=== PATIENT | female | born 1965 | race Caucasian/White ===

== ENCOUNTER → 2018-09-02 | Outpatient (CLI) | payer MEDICARE ==
--- NOTE | 2018-09-02 12:27 | Diagnostic Imaging Report ---
INDICATION: Left lower leg pain. TECHNIQUE: AP and lateral views of the left tibia and fibula show no fracture, dislocation, or other acute abnormalities. IMPRESSION: Negative left tibia and fibula. Dictated by: Dictated on workstation # [id number]
== END ==
LOC: RAD 11:28
PROVIDERS: ATTEND Family Medicine
DX: S89.92XA Unspecified injury of left lower leg, initial encounter (principal)
CPT/HCPCS: 73590

== ENCOUNTER 2018-12-26 14:41 | Emergency (ER) | payer MEDICARE ==
[~2018-12-26] VITALS: Ht 160 cm; Wt 129.3 kg
--- OUTSIDE RECORDS SUMMARY | 2018-12-26 14:46 | XMS REPORT ---
Author Author PAULA VOGEL Organization [facility] Address [address] [place] [address] Care Team Providers Care Drug Abuse Program Coordinator Name Role Phone PAULA VOGEL Unavailable PROBLEMS Type Condition ICD9-CM Code UCY11-ID Code Onset Dates Condition Status SNOMED Code Problem Multiple sclerosis G35 Active 87766597 Problem Restless leg syndrome G25.81 Active 18986434 Problem Essential hypertension I10 Active 23112030 Problem Cervical neck pain with evidence of disc disease M50.90 Active 423266338 ALLERGIES Substance Reaction Event Type Date Status Tamsulosin HCl Unknown Drug Allergy November, Active SulfADIAZINE Unknown Drug Allergy November, Active Oxycodone-Acetaminophen Unknown Drug Allergy November, Active ALL TAPE ADHESIVE Unknown Non Drug Allergy November, Active ENCOUNTERS Encounter Location Date Diagnosis [facility] [address] [facility] [id number] [place] [address] Feb, Flank pain R10.9 ; Acute cystitis without hematuria N30.00 and BMI 50.0-59.9, adult Z68.43 [facility] [address] [facility] [id number] [place] [address] Dec, Dental examination Z01.20 [facility] [address] [facility] [id number] [place] [address] November, Dental examination Z01.20 [facility] [address] [id number] [address] November, Dental caries on smooth surface penetrating into pulp K02.63 [facility] [address] [id number] [place] [address] November, [facility] [address] [address] November, Tear of medial meniscus of left knee, current, unspecified tear type, initial encounter S83.242A and Chondromalacia, left knee M94.262 [facility] LARISSA [id number] [place] [address] Oct, [facility] [address] [id number] [place] [address] Oct, Dental examination Z01.20 [facility] LARISSA [id number] [place] [address] Oct, Multiple sclerosis G35 and Cervical neck pain with evidence of disc disease M50.90 [facility] [address] [id number] [place] [address] Oct, [facility] LARISSA [id number] [place] [address] Oct, [facility] LARISSA [id number] [place] [address] Oct, History of urinary retention Z87.898 ; BMI 50.0-59.9, adult Z68.43 ; CVA tenderness M54.9 and Left anterior knee pain M25.562 [facility] LARISSA [id number] [place] [address] Sep, [facility] LARISSA [id number] [place] [address] Sep, [facility] LARISSA [id number] [address] Sep, Essential hypertension I10 ; Urinary retention R33.9 ; BMI 50.0-59.9, adult Z68.43 ; Cervical neck pain with evidence of disc disease M50.90 ; Restless leg syndrome G25.81 ; Multiple sclerosis G35 and Long-term current use of high risk medication other than anticoagulant Z79.899 IMMUNIZATIONS No Known Immunizations SOCIAL HISTORY Never Assessed REASON FOR VISIT TE PLAN OF CARE Activity Details Follow Up prn Reason: VITAL SIGNS Height 5'3" in 2017-12-09 Heart Rate 76 bpm 2017-12-09 Blood pressure systolic 120 mmHg 2017-12-09 Blood pressure diastolic 80 mmHg 2017-12-09 MEDICATIONS Medication Instructions Dosage Frequency Start Date End Date Duration Status Baclofen 10 MG Orally Three times a day 1 tablet with food or milk 8h Active Fenofibrate Micronized 134 MG Orally Once a day 1 capsule with a meal 24h Active Pramipexole Dihydrochloride 0.5 MG Orally Once a day 2 tablets 24h 90 days Active Celecoxib 400 MG Orally Once a day 1 capsule with food 24h 90 days Active Tecfidera 240 MG Orally Twice a day 1 capsule 12h 90 days Active Clindamycin HCl 150 MG Orally every 8 hrs 1 capsules 8h 10 days Not-Taking Amitriptyline HCl 25 MG Orally Once a day 1 tablet 24h Sep, 30 day(s) Active Zoloft 100 MG Orally Once a day 1 1/2 tablets 24h Active Ondansetron 4 MG Active Clarinex-D 12 Hour 2.5-120 MG Orally every 12 hrs 1 tablet 12h Active Amoxicillin 500 MG Orally every 12 hrs 1 capsule 12h 10 day(s) Not-Taking Losartan Potassium-HCTZ 50-12.5 MG Orally Once a day 1 tablet 24h 90 days Active Methenamine Hippurate 1 GM Orally Twice a day 1 tablet 12h 90 days Active Gabapentin 300 MG Orally 3 times a day 1 capsule before bedtime 8h Sep, 30 day(s) Active Flomax 0.4 MG Orally Once a day 1 capsule 24h 90 days Active Cyclobenzaprine HCl 10 MG Orally Three times a day 1 tablet as needed 8h Sep, Active RESULTS No Results PROCEDURES Procedure Date Ordered Result Body Site EXTRAC ERUPTED TOOTH/EXPOSED ROOT December 09, 2017 INSTRUCTIONS MEDICATIONS ADMINISTERED No Known Medications MEDICAL (GENERAL) HISTORY Type Description Date Medical History MS Medical History Spinal stenosis Medical History hypertension Medical History anxiety Medical History urinary retention Medical History memory issues Surgical History tonsillectomy Surgical History tubal ligation 1986 Surgical History choleycystectomy 1986 Surgical History complete hysterectomy 2005 Surgical History neck fusion 2015 Hospitalization History limited ROM/pain 08/2017 Hospitalization History ER visits
--- OUTSIDE RECORDS SUMMARY | 2018-12-26 14:46 | XMS REPORT ---
Author Author jenifferLOBITO Turpin Organization [facility] Address [address] [place] [address] Care Team Providers Care Tube Draw Helper Name Role Phone LOBITO Cintron Unavailable PROBLEMS Type Condition ICD9-CM Code PTX63-KE Code Onset Dates Condition Status SNOMED Code Problem Multiple sclerosis G35 Active 44302637 Problem Restless leg syndrome G25.81 Active 46915511 Problem Essential hypertension I10 Active 28855914 Problem Cervical neck pain with evidence of disc disease M50.90 Active 849561654 ALLERGIES Substance Reaction Event Type Date Status Tamsulosin HCl Unknown Drug Allergy Dec, Active SulfADIAZINE Unknown Drug Allergy Dec, Active Oxycodone-Acetaminophen Unknown Drug Allergy Dec, Active ALL TAPE ADHESIVE Unknown Non Drug Allergy Dec, Active ENCOUNTERS Encounter Location Date Diagnosis [facility] [address] [id number], [place] [address] Feb, [facility] [address]00565100[place], [place] [address] Feb, Flank pain R10.9 ; Acute cystitis without hematuria N30.00 and BMI 50.0-59.9, adult Z68.43 [facility] [address] [facility] [id number] [address] Dec, Dental examination Z01.20 [facility] [address] [facility] [id number] [address] November, Dental examination Z01.20 [facility] [address] [id number], [place] [address] November, Dental caries on smooth surface penetrating into pulp K02.63 [facility] [address] [id number] [place] [address] November, [facility] [address] [facility] [id number] [place] [address] November, Tear of medial meniscus of left knee, current, unspecified tear type, initial encounter S83.242A and Chondromalacia, left knee M94.262 [facility] LARISSA [address] [id number] [place] [address] Oct, [facility] [address] [id number], [place] [address] Oct, Dental examination Z01.20 [facility] LARISSA [address] [id number] [place] [address] Oct, Multiple sclerosis G35 and Cervical neck pain with evidence of disc disease M50.90 [facility] [address] [facility]NOTE 3[facility] [id number] [place] [address] Oct, [facility] LARISSA [address] [id number] [place] [address] Oct, [facility] [place] [address] [id number] [place] [address] Oct, History of urinary retention Z87.898 ; BMI 50.0-59.9, adult Z68.43 ; CVA tenderness M54.9 and Left anterior knee pain M25.562 [facility] LARISSA [address] [id number] [place] [address] Sep, [facility] LARISSA [address] [id number] [place] [address] Sep, [facility] LARISSA [address] [id number] [place] [address] Sep, Essential hypertension I10 ; Urinary retention R33.9 ; BMI 50.0-59.9, adult Z68.43 ; Cervical neck pain with evidence of disc disease M50.90 ; Restless leg syndrome G25.81 ; Multiple sclerosis G35 and Long-term current use of high risk medication other than anticoagulant Z79.899 IMMUNIZATIONS No Known Immunizations SOCIAL HISTORY Never Assessed REASON FOR VISIT nayeli PLAN OF CARE Activity Details Follow Up prn Reason:dharmesh/hygiene VITAL SIGNS Height 5'3" in 2017-12-22 Blood pressure systolic 145 mmHg 2017-12-22 Blood pressure diastolic 75 mmHg 2017-12-22 MEDICATIONS Medication Instructions Dosage Frequency Start Date End Date Duration Status Methenamine Hippurate 1 GM Orally Twice a day 1 tablet 12h 90 days Active Pramipexole Dihydrochloride 0.5 MG Orally Once a day 2 tablets 24h 90 days Active Baclofen 10 MG Orally Three times a day 1 tablet with food or milk 8h Active Amoxicillin 500 MG Orally every 12 hrs 1 capsule 12h 10 day(s) Not-Taking Tecfidera 240 MG Orally Twice a day 1 capsule 12h 90 days Active Zoloft 100 MG Orally Once a day 1 1/2 tablets 24h Active Cyclobenzaprine HCl 10 MG Orally Three times a day 1 tablet as needed 8h Sep, Active Losartan Potassium-HCTZ 50-12.5 MG Orally Once a day 1 tablet 24h 90 days Active Clarinex-D 12 Hour 2.5-120 MG Orally every 12 hrs 1 tablet 12h Active Fenofibrate Micronized 134 MG Orally Once a day 1 capsule with a meal 24h Active Ondansetron 4 MG Active Flomax 0.4 MG Orally Once a day 1 capsule 24h 90 days Active Celecoxib 400 MG Orally Once a day 1 capsule with food 24h 90 days Active Gabapentin 300 MG Orally 3 times a day 1 capsule before bedtime 8h Sep, 30 day(s) Active Clindamycin HCl 150 MG Orally every 8 hrs 1 capsules 8h 10 days Not-Taking Amitriptyline HCl 25 MG Orally Once a day 1 tablet 24h Sep, 30 day(s) Active RESULTS No Results PROCEDURES Procedure Date Ordered Result Body Site LTD ORAL EVALUATION - PROBLEM FOCUS December 22, 2017 INTRAORL-PERIAPICAL 1 FILM 12243 December 22, 2017 BITEWING - SINGLE FILM December 22, 2017 INSTRUCTIONS MEDICATIONS ADMINISTERED No Known Medications MEDICAL (GENERAL) HISTORY Type Description Date Medical History MS Medical History Spinal stenosis Medical History hypertension Medical History anxiety Medical History urinary retention Medical History memory issues Surgical History tonsillectomy Surgical History tubal ligation 1986 Surgical History choleycystectomy 1986 Surgical History complete hysterectomy 2005 Surgical History neck fusion 2016 Hospitalization History limited ROM/pain 08/2017 Hospitalization History ER visits
--- OUTSIDE RECORDS SUMMARY | 2018-12-26 14:46 | XMS REPORT ---
Author Author JASIEL MUKHERJEE Organization [facility] Address [address] [place] [address] Care Team Providers Care Crystal Lapper Name Role Phone JASIEL MUKHERJEE Unavailable PROBLEMS Type Condition ICD9-CM Code TBY31-OP Code Onset Dates Condition Status SNOMED Code Problem Multiple sclerosis G35 Active 90511547 Problem Restless leg syndrome G25.81 Active 35679934 Problem Essential hypertension I10 Active 00021941 Problem Cervical neck pain with evidence of disc disease M50.90 Active 729096267 ALLERGIES No Information ENCOUNTERS Encounter Location Date Diagnosis [facility] [address] [id number] [address] Dec, Dental examination Z01.20 [facility] [address] [place] [id number] November, Dental examination Z01.20 [facility] [id number] [address] November, Dental caries on smooth surface penetrating into pulp K02.63 [facility] LARISSA [address] [id number] [place] [address] November, [facility] [address] [id number], [place] [address] November, Tear of medial meniscus of left knee, current, unspecified tear type, initial encounter S83.242A and Chondromalacia, left knee M94.262 [facility] [place] [address] [id number] [place] [address] Oct, [facility] [address] [id number] [place] [address] Oct, Dental examination Z01.20 [facility] [place] [address] [id number] [place] [address] Oct, Multiple sclerosis G35 and Cervical neck pain with evidence of disc disease M50.90 [facility] [address] [facility] [id number] [place] [address] Oct, [facility] [place] [address] [id number] [place] [address] Oct, [facility] [place] [address] [id number] [place] [address] Oct, History of urinary retention Z87.898 ; BMI 50.0-59.9, adult Z68.43 ; CVA tenderness M54.9 and Left anterior knee pain M25.562 [facility] LARISSA [address] [id number] [place] [address] Sep, [facility] [place] [address] [id number] [place] [address] Sep, [facility] [place] [address] [id number] [place] [address] Sep, Essential hypertension I10 ; Urinary retention R33.9 ; BMI 50.0-59.9, adult Z68.43 ; Cervical neck pain with evidence of disc disease M50.90 ; Restless leg syndrome G25.81 ; Multiple sclerosis G35 and Long-term current use of high risk medication other than anticoagulant Z79.899 IMMUNIZATIONS No Known Immunizations SOCIAL HISTORY Never Assessed REASON FOR VISIT Left knee pain-xray done at [facility]- left knee is worse but both rolanda Archibald RN PLAN OF CARE Activity Details Follow Up prn Reason: VITAL SIGNS Height 5'3" in 2017-11-18 Blood pressure systolic 132 mmHg 2017-11-18 Blood pressure diastolic 72 mmHg 2017-11-18 MEDICATIONS Unknown Medications RESULTS Name Result Date Reference Range MRI : Knee, Left w/o contrast 2017-11-19 PROCEDURES Procedure Date Ordered Result Body Site DRAIN/INJECT, JOINT/BURSA November 18, 2017 DEPO MEDROL 80 MG/ML November 18, 2017 INSTRUCTIONS MEDICATIONS ADMINISTERED No Known Medications MEDICAL (GENERAL) HISTORY Type Description Date Medical History MS Medical History Spinal stenosis Medical History hypertension Medical History anxiety Medical History urinary retention Medical History memory issues Surgical History tonsillectomy Surgical History tubal ligation 1986 Surgical History choleycystectomy 1987 Surgical History complete hysterectomy 2005 Surgical History neck fusion 2016 Hospitalization History limited ROM/pain 08/2017 Hospitalization History ER visits
--- OUTSIDE RECORDS SUMMARY | 2018-12-26 14:46 | XMS REPORT ---
Author Author AGUSTIN BARDALES [facility] Address Unknown Care Team Providers Care Knowledge Analyst Name Role Phone AGUSTIN BARDALES Unavailable PROBLEMS Type Condition ICD9-CM Code TIP16-OP Code Onset Dates Condition Status SNOMED Code Problem Multiple sclerosis G35 Active 90139379 Problem Restless leg syndrome G25.81 Active 45939292 Problem Essential hypertension I10 Active 57760019 Problem Cervical neck pain with evidence of disc disease M50.90 Active 809191546 ALLERGIES Substance Reaction Event Type Date Status Tamsulosin HCl Unknown Drug Allergy November, Active SulfADIAZINE Unknown Drug Allergy November, Active Oxycodone-Acetaminophen Unknown Drug Allergy November, Active ALL TAPE ADHESIVE Unknown Non Drug Allergy November, Active ENCOUNTERS Encounter Location Date Diagnosis [facility] [address] [id number] [address] Feb, [facility] [id number] [place] [address] Feb, Flank pain R10.9 ; Acute cystitis without hematuria N30.00 and BMI 50.0-59.9, adult Z68.43 [facility] [address]00565100[place] [address] Dec, Dental examination Z01.20 [facility] [address] [facility] [id number] [place] [address] November, Dental examination Z01.20 [facility] [id number] [place] [address] November, Dental caries on smooth surface penetrating into pulp K02.63 [facility] [address] [id number] [place] [address] November, [facility] [address] [place] [address] November, Tear of medial meniscus of left knee, current, unspecified tear type, initial encounter S83.242A and Chondromalacia, left knee M94.262 [facility] [address] [id number] [place] [address] Oct, [facility] [address] [id number] [place] [address] Oct, Dental examination Z01.20 [facility] [address] [id number] [place] [address] Oct, Multiple sclerosis G35 and Cervical neck pain with evidence of disc disease M50.90 [facility] [address] [facility] [id number] [place] [address] Oct, [facility] [address] [id number] [place] [address] Oct, [facility] [address] [id number] [place] [address] Oct, History of urinary retention Z87.898 ; BMI 50.0-59.9, adult Z68.43 ; CVA tenderness M54.9 and Left anterior knee pain M25.562 [facility] [address] [id number] [place] [address] Sep, [facility] [address] [id number] [place] [address] Sep, [facility] [address] [id number] [place] [address] Sep, Essential hypertension I10 ; Urinary retention R33.9 ; BMI 50.0-59.9, adult Z68.43 ; Cervical neck pain with evidence of disc disease M50.90 ; Restless leg syndrome G25.81 ; Multiple sclerosis G35 and Long-term current use of high risk medication other than anticoagulant Z79.899 IMMUNIZATIONS No Known Immunizations SOCIAL HISTORY Never Assessed REASON FOR VISIT pain after TE PLAN OF CARE Activity Details Follow Up prn Reason:dharmesh/hygiene VITAL SIGNS Height 5'3" in 2017-12-16 Blood pressure systolic 125 mmHg 2017-12-16 Blood pressure diastolic 67 mmHg 2017-12-16 MEDICATIONS Medication Instructions Dosage Frequency Start Date [...] capsule with food 24h 90 days Active Clarinex-D 12 Hour 2.5-120 MG Orally every 12 hrs 1 tablet 12h Active Clindamycin HCl 150 MG Orally every 8 hrs 1 capsules 8h 10 days Not-Taking Amitriptyline HCl 25 MG Orally Once a day 1 tablet 24h Sep, 30 day(s) Active Ondansetron 4 MG Active Tecfidera 240 MG Orally Twice a day 1 capsule 12h 90 days Active Zoloft 100 MG Orally Once a day 1 1/2 tablets 24h Active Gabapentin 300 MG Orally 3 times a day 1 capsule before bedtime 8h Sep, 30 day(s) Active Losartan Potassium-HCTZ 50-12.5 MG Orally Once a day 1 tablet 24h 90 days Active Methenamine Hippurate 1 GM Orally Twice a day 1 tablet 12h 90 days Active Amoxicillin 500 MG Orally every 12 hrs 1 capsule 12h 10 day(s) Not-Taking Flomax 0.4 MG Orally Once a day 1 capsule 24h 90 days Active Cyclobenzaprine HCl 10 MG Orally Three times a day 1 tablet as needed 8h Sep, Active RESULTS No Results PROCEDURES Procedure Date Ordered Result Body Site LTD ORAL EVALUATION - PROBLEM FOCUS December 16, 2017 INTRAORL-PERIAPICAL 1 FILM 15569 December 16, 2017 INSTRUCTIONS MEDICATIONS ADMINISTERED No Known Medications [...]
--- OUTSIDE RECORDS SUMMARY | 2018-12-26 14:46 | XMS REPORT ---
Author Author FLORENTIN MCKEON [facility] LARISSA Address [address] [place] [address] Care Team Providers Care Hydration Plant Operator Name Role Phone FLORENTIN MCKEON Unavailable PROBLEMS Type Condition ICD9-CM Code UVR34-PL Code Onset Dates Condition Status SNOMED Code Problem Multiple sclerosis G35 Active 41627866 Problem Restless leg syndrome G25.81 Active 41537188 Problem Essential hypertension I10 Active 31216528 Problem Cervical neck pain with evidence of disc disease M50.90 Active 412543458 ALLERGIES No Information ENCOUNTERS Encounter Location Date Diagnosis [facility] [address] [id number] [address] Dec, Dental examination Z01.20 [facility] [address] [place] [phone] November, Dental examination Z01.20 [facility] [id number] [place] [address] November, Dental caries on smooth surface penetrating into pulp K02.63 [facility] [place] [address] [id number] [place] [address] November, [facility] [address] [id number], [place] [address] November, Tear of medial meniscus of left knee, current, unspecified tear type, initial encounter S83.242A and Chondromalacia, left knee M94.262 [facility] [place] [address] [id number] [place] [address] Oct, [facility] [address] [id number], [place] [address] Oct, Dental examination Z01.20 [facility] [place] [address] [id number] [place] [address] Oct, Multiple sclerosis G35 and Cervical neck pain with evidence of disc disease M50.90 [facility] [address] [facility] [id number] [place] [address] Oct, [facility] LAR[facility]SA [address] [id number] [place] [address] Oct, [facility] [place] [address] [id number] [place] [address] Oct, History of urinary retention Z87.898 ; BMI 50.0-59.9, adult Z68.43 ; CVA tenderness M54.9 and Left anterior knee pain M25.562 [facility] [place] Far[address] [id number] [place] [address] Sep, [facility] [place] [address] [id number] [place] [address] Sep, [facility] [address] [id number] [place] [address] Sep, Essential hypertension I10 ; Urinary retention R33.9 ; BMI 50.0-59.9, adult Z68.43 ; Cervical neck pain with evidence of disc disease M50.90 ; Restless leg syndrome G25.81 ; Multiple sclerosis G35 and Long-term current use of high risk medication other than anticoagulant Z79.899 IMMUNIZATIONS No Known Immunizations SOCIAL HISTORY Never Assessed REASON FOR VISIT Requests return call PLAN OF CARE VITAL SIGNS MEDICATIONS Unknown Medications RESULTS No Results PROCEDURES No Known procedures INSTRUCTIONS MEDICATIONS ADMINISTERED No Known Medications MEDICAL [...]
--- OUTSIDE RECORDS SUMMARY | 2018-12-26 14:46 | XMS REPORT ---
Author Author YOLA SIMS Organization [facility] Address [address] [place] [address] Care Team Providers Care Playroom Attendant Name Role Phone YOLA SIMS Unavailable PROBLEMS Type Condition ICD9-CM Code XTH81-IS Code Onset Dates Condition Status SNOMED Code Problem Multiple sclerosis G35 Active 68173597 Problem Restless leg syndrome G25.81 Active 44768608 Problem Essential hypertension I10 Active 14218213 Problem Cervical neck pain with evidence of disc disease M50.90 Active 617461617 ALLERGIES Substance Reaction Event Type Date Status Tamsulosin HCl Unknown Drug Allergy Feb, Active SulfADIAZINE Unknown Drug Allergy Feb, Active Oxycodone-Acetaminophen Unknown Drug Allergy Feb, Active ALL TAPE ADHESIVE Unknown Non Drug Allergy Feb, Active ENCOUNTERS Encounter Location Date Diagnosis [facility] [id number] [place] [address] Feb, [facility] [id number] [place] [address] Feb, Flank pain R10.9 ; Acute cystitis without hematuria N30.00 and BMI 50.0-59.9, adult Z68.43 [facility] [address] [phone] Dec, Dental examination Z01.20 [facility] [address] [id number] November, Dental examination Z01.20 [facility] [address] [id number], [place] [address] November, Dental caries on smooth surface penetrating into pulp K02.63 [facility] [address] [id number] [place] [address] November, [facility] [address] [facility] [id number] [place] [address] November, Tear of medial meniscus of left knee, current, unspecified tear type, initial encounter S83.242A and Chondromalacia, left knee M94.262 [facility] [place] [address] [id number] [place] [address] Oct, [facility] [address] [id number] [address] Oct, Dental examination Z01.20 [facility] [address] [id number] [place] [address] Oct, Multiple sclerosis G35 and Cervical neck pain with evidence of disc disease M50.90 [facility] [address] [facility] [id number] [place] [address] Oct, [facility] [address] [id number] [place] [address] Oct, [facility] [place] [address] [id number] [place] [address] Oct, History of urinary retention Z87.898 ; BMI 50.0-59.9, adult Z68.43 ; CVA tenderness M54.9 and Left anterior knee pain M25.562 [facility] [address] [id number] [place] [address] Sep, [facility] [address] [id number] [place] [address] Sep, [facility] [address] [id number] [place] [address] Sep, Essential hypertension I10 ; Urinary retention R33.9 ; BMI 50.0-59.9, adult Z68.43 ; Cervical neck pain with evidence of disc disease M50.90 ; Restless leg syndrome G25.81 ; Multiple sclerosis G35 and Long-term current use of high risk medication other than anticoagulant Z79.899 IMMUNIZATIONS No Known Immunizations SOCIAL HISTORY Never Assessed REASON FOR VISIT flank pain bilaterally et some urinary incontinence. been like this for a week. was in the ER last week...reports it was all stress related. [email or web address] PLAN OF CARE Activity Details Follow Up prn Reason: VITAL SIGNS Height 5'3" in 2018-03-04 Weight 284.4 lbs 2018-03-04 Temperature 98.3 degrees Fahrenheit 2018-03-04 Heart Rate 80 bpm 2018-03-04 Respiratory Rate 20 2018-03-04 BMI 50.37 kg/m2 2018-03-04 Blood pressure systolic 130 mmHg 2018-03-04 Blood pressure diastolic 78 mmHg 2018-03-04 MEDICATIONS Medication Instructions Dosage Frequency Start Date End Date Duration Status Zoloft 100 MG Orally Once a day 1 1/2 tablets 24h Active Celecoxib 400 MG Orally Once a day 1 capsule with food 24h 90 days Active Amitriptyline HCl 25 MG Orally Once a day 1 tablet 24h Sep, 30 day(s) Active Cyclobenzaprine HCl 10 MG Orally Three times a day 1 tablet as needed 8h Sep, Active Flomax 0.4 MG Orally Once a day 1 capsule 24h 90 days Active Losartan Potassium-HCTZ 50-12.5 MG Orally Once a day 1 tablet 24h 90 days Active Tecfidera 240 MG Orally Twice a day 1 capsule 12h 90 days Active Baclofen 10 MG Orally Three times a day 1 tablet with food or milk 8h Active Macrobid 100 MG Orally every 12 hrs 1 capsule with food 12h Feb, 3 days Active Methenamine Hippurate 1 GM Orally Twice a day 1 tablet 12h 90 days Active Clarinex-D 12 Hour 2.5-120 MG Orally every 12 hrs 1 tablet 12h Active Gabapentin 300 MG Orally 3 times a day 1 capsule before bedtime 8h Sep, 30 day(s) Active Ondansetron 4 MG Active Pramipexole Dihydrochloride 0.5 MG Orally Once a day 2 tablets 24h 90 days Active Fenofibrate Micronized 134 MG Orally Once a day 1 capsule with a meal 24h Active RESULTS No Results PROCEDURES Procedure Date Ordered Result Body Site URINALYSIS, AUTO, W/O SCOPE Mar 04, 2018 URINE CULTURE/COLONY COUNT Mar 04, 2018 INSTRUCTIONS MEDICATIONS ADMINISTERED No Known Medications MEDICAL [...]
--- OUTSIDE RECORDS SUMMARY | 2018-12-26 14:46 | XMS REPORT ---
Author Author YOLA SIMS [facility] Address [address] [place] [address] Care Team Providers Care Ballet Teacher Name Role Phone YOLA SIMS Unavailable PROBLEMS Type Condition ICD9-CM Code YID77-DY Code Onset Dates Condition Status SNOMED Code Problem Multiple sclerosis G35 Active 86289381 Problem Restless leg syndrome G25.81 Active 90830171 Problem Essential hypertension I10 Active 69479499 Problem Cervical neck pain with evidence of disc disease M50.90 Active 909497003 ALLERGIES No Information ENCOUNTERS Encounter Location Date Diagnosis [facility] [address] [place] [address] Feb, [facility] [address], [place] [address] Feb, Flank pain R10.9 ; Acute cystitis without hematuria N30.00 and BMI 50.0-59.9, adult Z68.43 [facility] [id number] [phone] Dec, Dental examination Z01.20 [facility] [address] [place] [id number] November, Dental examination Z01.20 [facility] [address] [id number], [place] [address] November, Dental caries on smooth surface penetrating into pulp K02.63 [facility] [address] [id number] [place] [address] November, [facility] [address] [id number], [place] [address] November, Tear of medial meniscus of left knee, current, unspecified tear type, initial encounter S83.242A and Chondromalacia, left knee M94.262 [facility] [place] [address] [id number] [place] [address] Oct, [facility] [address] [id number] [place] [address] Oct, Dental examination Z01.20 [facility] [address] [address] [id number] [place] [address] Oct, Multiple sclerosis G35 and Cervical neck pain with evidence of disc disease M50.90 [facility] [address] [id number] [place] [address] Oct, [facility] [place] [address] [id number] [place] [address] Oct, [facility] [place] [address] [id number] [place] [address] Oct, History of urinary retention Z87.898 ; BMI 50.0-59.9, adult Z68.43 ; CVA tenderness M54.9 and Left anterior knee pain M25.562 [facility] [address] [id number] [place] [address] Sep, [facility] [address] [id number] [place] [address] Sep, [facility] [address] [id number] [place] [address] Sep, Essential hypertension I10 ; Urinary retention R33.9 ; BMI 50.0-59.9, adult Z68.43 ; Cervical neck pain with evidence of disc disease M50.90 ; Restless leg syndrome G25.81 ; Multiple sclerosis G35 and Long-term current use of high risk medication other than anticoagulant Z79.899 IMMUNIZATIONS No Known Immunizations SOCIAL HISTORY Never Assessed REASON FOR VISIT Returned call PLAN OF CARE VITAL SIGNS MEDICATIONS [...]
--- OUTSIDE RECORDS SUMMARY | 2018-12-26 14:47 | XMS REPORT ---
Author Author FLORENTIN MCKEON [facility] Address [address] [place] [address] Care Team Providers Care Litigation Docket Manager Name Role Phone FLORENTIN MCKEON Unavailable PROBLEMS Type Condition ICD9-CM Code RTQ64-YV Code Onset Dates Condition Status SNOMED Code Problem Multiple sclerosis G35 Active 24844345 Problem Restless leg syndrome G25.81 Active 65019800 Problem Essential hypertension I10 Active 29911456 Problem Cervical neck pain with evidence of disc disease M50.90 Active 495662951 ALLERGIES No Information ENCOUNTERS Encounter Location Date Diagnosis [facility] [id number] [id number] Dec, Dental examination Z01.20 [facility] [address] [place] [id number] November, Dental examination Z01.20 [facility] [id number] [place] [address] November, Dental caries on smooth surface penetrating into pulp K02.63 [facility] [address] [id number] [place] [address] November, [facility] [address] [id number] [address] November, Tear of medial meniscus of left knee, current, unspecified tear type, initial encounter S83.242A and Chondromalacia, left knee M94.262 [facility] [address] [id number] [place] [address] Oct, [facility] [address] [id number], [place] [address] Oct, Dental examination Z01.20 [facility] [address] [id number] [place] [address] Oct, Multiple sclerosis G35 and Cervical neck pain with evidence of disc disease M50.90 [facility] [address] [facility] [id number] [place] [address] Oct, [facility] [address] [id number] [place] [address] Oct, [facility] MACED[place] [address] [id number] [place] [address] Oct, History of urinary retention Z87.898 ; BMI 50.0-59.9, adult Z68.43 ; CVA tenderness M54.9 and Left anterior knee pain M25.562 [facility] MACEDO [address] [id number] [place] [address] Sep, [facility] [address] [id number] [place] [address] Sep, [facility] [address] [id number] [place] [address] Sep, Essential hypertension I10 ; Urinary retention R33.9 ; BMI 50.0-59.9, adult Z68.43 ; Cervical neck pain with evidence of disc disease M50.90 ; Restless leg syndrome G25.81 ; Multiple sclerosis G35 and Long-term current use of high risk medication other than anticoagulant Z79.899 IMMUNIZATIONS No Known Immunizations SOCIAL HISTORY Never Assessed REASON FOR VISIT FYI only PLAN OF CARE VITAL SIGNS MEDICATIONS Unknown [...]
--- OUTSIDE RECORDS SUMMARY | 2018-12-26 14:47 | XMS REPORT ---
Author Author PAULA MERRILL Organization [facility] Address [address] [place] [address] Care Team Providers Care Travel Ticketing Reviewer Name Role Phone PAULA MERRILL Unavailable PROBLEMS Type Condition ICD9-CM Code HIL47-ZM Code Onset Dates Condition Status SNOMED Code Problem Multiple sclerosis G35 Active 87197226 Problem Restless leg syndrome G25.81 Active 12542565 Problem Essential hypertension I10 Active 87099682 Problem Cervical neck pain with evidence of disc disease M50.90 Active 050417344 ALLERGIES Substance Reaction Event Type Date Status Tamsulosin HCl Unknown Drug Allergy Oct, Active SulfADIAZINE Unknown Drug Allergy Oct, Active Oxycodone-Acetaminophen Unknown Drug Allergy Oct, Active ALL TAPE ADHESIVE Unknown Non Drug Allergy Oct, Active ENCOUNTERS Encounter Location Date Diagnosis [facility] [address] [facility] [id number] [id number] Dec, Dental examination Z01.20 [facility] [address] [facility] [id number] [phone] November, Dental examination Z01.20 [facility] [address] [id number], [place] [address] November, Dental caries on smooth surface penetrating into pulp K02.63 [facility] [address] [id number] [place] [address] November, [facility] [address] [facility] [id number], [place] [address] November, Tear of medial meniscus of left knee, current, unspecified tear type, initial encounter S83.242A and Chondromalacia, left knee M94.262 [facility] [address] [id number] [place] [address] Oct, [facility] [address] [id number] [place] [address] Oct, Dental examination Z01.20 [facility] [address] [id number] [place] [address] Oct, Multiple sclerosis G35 and Cervical neck pain with evidence of disc disease M50.90 [facility] [address] [id number] [place] [address] Oct, [facility] [place] [address] [id number] [place] [address] Oct, [facility] [place] [address] [id number] [place] [address] Oct, History of urinary retention Z87.898 ; BMI 50.0-59.9, adult Z68.43 ; CVA tenderness M54.9 and Left anterior knee pain M25.562 [facility] [place] [address] [id number] [place] [address] Sep, [facility] [place] [address] [id number] [place] [address] Sep, [facility] [place] [address] [id number] [place] [address] Sep, Essential hypertension I10 ; Urinary retention R33.9 ; BMI 50.0-59.9, adult Z68.43 ; Cervical neck pain with evidence of disc disease M50.90 ; Restless leg syndrome G25.81 ; Multiple sclerosis G35 and Long-term current use of high risk medication other than anticoagulant Z79.899 IMMUNIZATIONS No Known Immunizations SOCIAL HISTORY Never Assessed REASON FOR VISIT Dental pain PLAN OF CARE Activity Details Follow Up TE #30 45 mins Merrill Reason: VITAL SIGNS MEDICATIONS Medication Instructions Dosage Frequency Start Date End Date Duration Status Celecoxib 400 MG Orally Once a day 1 capsule with food 24h 90 days Active Losartan Potassium-HCTZ 50-12.5 MG Orally Once a day 1 tablet 24h 90 days Active Methenamine Hippurate 1 GM Orally Twice a day 1 tablet 12h 90 days Active Baclofen 10 MG Orally Three times a day 1 tablet with food or milk 8h Active Tecfidera 240 MG Orally Twice a day 1 capsule 12h 90 days Active Zoloft 100 MG Orally Once a day 1 1/2 tablets 24h Active Cyclobenzaprine HCl 10 MG Orally Three times a day 1 tablet as needed 8h Sep, Active Fenofibrate Micronized 134 MG Orally Once a day 1 capsule with a meal 24h Active Clarinex-D 12 Hour 2.5-120 MG Orally every 12 hrs 1 tablet 12h Active Clindamycin HCl 150 MG Orally every 8 hrs 1 capsules 8h 10 days Active Ondansetron 4 MG Active Flomax 0.4 MG Orally Once a day 1 capsule 24h 90 days Active Pramipexole Dihydrochloride 0.5 MG Orally Once a day 2 tablets 24h 90 days Active Gabapentin 300 MG Orally 3 times a day 1 capsule before bedtime 8h Sep, 30 day(s) Active Amitriptyline HCl 25 MG Orally Once a day 1 tablet 24h Sep, 30 day(s) Active RESULTS No Results PROCEDURES Procedure Date Ordered Result Body Site LTD ORAL EVALUATION - PROBLEM FOCUS November 02, 2017 INTRAORL-PERIAPICAL 1 FILM 43732 November 02, 2017 INSTRUCTIONS MEDICATIONS ADMINISTERED No Known Medications [...]
--- OUTSIDE RECORDS SUMMARY | 2018-12-26 14:47 | XMS REPORT ---
Author Author FLORENTIN MCKEON [facility] Address [address] [place] [address] Care Team Providers Care Seal Mixing Operator Name Role Phone FLORENTIN MCKEON Unavailable PROBLEMS Type Condition ICD9-CM Code MOI05-MC Code Onset Dates Condition Status SNOMED Code Problem Multiple sclerosis G35 Active 05161162 Problem Restless leg syndrome G25.81 Active 37443717 Problem Essential hypertension I10 Active 77380682 Problem Cervical neck pain with evidence of disc disease M50.90 Active 909127028 ALLERGIES Substance Reaction Event Type Date Status Tamsulosin HCl Unknown Drug Allergy Oct, Active SulfADIAZINE Unknown Drug Allergy Oct, Active Oxycodone-Acetaminophen Unknown Drug Allergy Oct, Active ALL TAPE ADHESIVE Unknown Non Drug Allergy Oct, Active ENCOUNTERS Encounter Location Date Diagnosis [facility] [address] [facility] [id number] [phone] Dec, Dental examination Z01.20 [facility] [address] [facility] [id number] [place] [phone] November, Dental examination Z01.20 [facility] [address] [id number], [place] [address] November, Dental caries on smooth surface penetrating into pulp K02.63 [facility] L[facility] [address] [id number] [place] [address] November, [facility] [address] [facility] [id number] [place] [address] November, Tear of medial meniscus of left knee, current, unspecified tear type, initial encounter S83.242A and Chondromalacia, left knee M94.262 [facility] [place] [address] [id number] [place] [address] Oct, [facility] [address] [id number] [place] [address] Oct, Dental examination Z01.20 [facility] [address] [id number] [place] [address] Oct, Multiple sclerosis G35 and Cervical neck pain with evidence of disc disease M50.90 [facility] [address] [id number] [place] [address] Oct, [facility] [address] [id number] [place] [address] Oct, [facility] [place] [address] [id number] [place] [address] Oct, History of urinary retention Z87.898 ; BMI 50.0-59.9, adult Z68.43 ; CVA tenderness M54.9 and Left anterior knee pain M25.562 [facility] LARISSA [address] [id number] [place] [address] Sep, [facility] [address] [id number] [place] [address] Sep, [facility] DENNY[facility] [address] [id number] [place] [address] Sep, Essential hypertension I10 ; Urinary retention R33.9 ; BMI 50.0-59.9, adult Z68.43 ; Cervical neck pain with evidence of disc disease M50.90 ; Restless leg syndrome G25.81 ; Multiple sclerosis G35 and Long-term current use of high risk medication other than anticoagulant Z79.899 IMMUNIZATIONS No Known Immunizations SOCIAL HISTORY Never Assessed REASON FOR VISIT UTI symptoms/wanting note for her dog- Patient states she is having incontinence and urgency, x4-5 days. Bam RN, Left knee pain, pt rates pain 10/10, Unable to bend knee. Bam [place] PLAN OF CARE Activity Details Follow Up prn Reason: VITAL SIGNS Height 5'3" in 2017-10-19 Weight 282.4 lbs 2017-10-19 Temperature 96.3 degrees Fahrenheit 2017-10-19 Heart Rate 89 bpm 2017-10-19 Respiratory Rate 16 2017-10-19 Oximetry 97 % 2017-10-19 BMI 50.02 kg/m2 2017-10-19 Blood pressure systolic 126 mmHg 2017-10-19 Blood pressure diastolic 68 mmHg 2017-10-19 MEDICATIONS Medication Instructions Dosage Frequency Start Date End Date Duration Status Baclofen 10 MG Orally Three times a day 1 tablet with food or milk 8h Active Fenofibrate Micronized 134 MG Orally Once a day 1 capsule with a meal 24h Active Flomax 0.4 MG Orally Once a day 1 capsule 24h 90 days Active Macrodantin 100 mg Orally twice a day 1 capsule with food or milk 12h Oct, Oct, 07 days Active Pramipexole Dihydrochloride 0.5 MG Orally Once a day 2 tablets 24h 90 days Active Gabapentin 300 MG Orally 3 times a day 1 capsule before bedtime 8h Sep, 30 day(s) Active Zoloft 100 MG Orally Once a day 1 1/2 tablets 24h Active Losartan Potassium-HCTZ 50-12.5 MG Orally Once a day 1 tablet 24h 90 days Active Clarinex-D 12 Hour 2.5-120 MG Orally every 12 hrs 1 tablet 12h Active Tecfidera 240 MG Orally Twice a day 1 capsule 12h 90 days Active Amitriptyline HCl 25 MG Orally Once a day 1 tablet 24h Sep, 30 day(s) Active Methenamine Hippurate 1 GM Orally Twice a day 1 tablet 12h 90 days Active Celecoxib 400 MG Orally Once a day 1 capsule with food 24h 90 days Active Ondansetron 4 MG Active Cyclobenzaprine HCl 10 MG Orally Three times a day 1 tablet as needed 8h Sep, Active RESULTS No Results PROCEDURES Procedure Date Ordered Result Body Site URINALYSIS, AUTO, W/O SCOPE October 19, 2017 URINE CULTURE/COLONY COUNT October 19, 2017 INSTRUCTIONS MEDICATIONS ADMINISTERED No Known Medications [...]
--- OUTSIDE RECORDS SUMMARY | 2018-12-26 14:47 | XMS REPORT ---
Author Author FLORENTIN MCKEON [facility] LARISSA Address [address] [place] [address] Care Team Providers Care Urban Planning Professor Name Role Phone FLORENTIN MCKEON Unavailable PROBLEMS Type Condition ICD9-CM Code NRJ79-IR Code Onset Dates Condition Status SNOMED Code Problem Multiple sclerosis G35 Active 91319086 Problem Restless leg syndrome G25.81 Active 10306325 Problem Essential hypertension I10 Active 14502883 Problem Cervical neck pain with evidence of disc disease M50.90 Active 224049162 ALLERGIES No Information ENCOUNTERS Encounter Location Date Diagnosis [facility] [address] [id number] [id number] Dec, Dental examination Z01.20 [facility] [address] [place] [id number] November, Dental examination Z01.20 [facility] [id number] [place] [address] November, Dental caries on smooth surface penetrating into pulp K02.63 [facility] [place] [address] [id number] [place] [address] November, [facility] [address] [id number], [place] [address] November, Tear of medial meniscus of left knee, current, unspecified tear type, initial encounter S83.242A and Chondromalacia, left knee M94.262 [facility] [place] [address] [id number] [place] [address] Oct, [facility] [address] [id number] [address] Oct, Dental examination Z01.20 [facility] [place] [address] [id number] [place] [address] Oct, Multiple sclerosis G35 and Cervical neck pain with evidence of disc disease M50.90 [facility] [address] [facility] [id number] [place] [address] Oct, [facility] DENNYMACEDO [address] [id number] [place] [address] Oct, [facility] [place] [address] [id number] [place] [address] Oct, History of urinary retention Z87.898 ; BMI 50.0-59.9, adult Z68.43 ; CVA tenderness M54.9 and Left anterior knee pain M25.562 [facility] [place] [address] [id number] [place] [address] Sep, [facility] [place] [address] [id number] [place] [address] Sep, [facility] [place] [address] [id number] [place] [address] Sep, Essential hypertension I10 ; Urinary retention R33.9 ; BMI 50.0-59.9, adult Z68.43 ; Cervical neck pain with evidence of disc disease M50.90 ; Restless leg syndrome G25.81 ; Multiple sclerosis G35 and Long-term current use of high risk medication other than anticoagulant Z79.899 IMMUNIZATIONS No Known Immunizations SOCIAL HISTORY Never Assessed REASON FOR VISIT PLAN OF CARE VITAL SIGNS MEDICATIONS Unknown [...]
--- OUTSIDE RECORDS SUMMARY | 2018-12-26 14:47 | XMS REPORT ---
Author Author FLORENTIN MCKEON [facility] LARISSA Address [address] [place] [address] Care Team Providers Care Commercial Management Accountant Name Role Phone FLORENTIN MCKEON Unavailable PROBLEMS Type Condition ICD9-CM Code SOC34-MW Code Onset Dates Condition Status SNOMED Code Problem Multiple sclerosis G35 Active 83332765 Problem Restless leg syndrome G25.81 Active 75839114 Problem Essential hypertension I10 Active 95383958 Problem Cervical neck pain with evidence of disc disease M50.90 Active 668540584 ALLERGIES No Information ENCOUNTERS Encounter Location Date Diagnosis [facility] [address] [id number] [phone] Dec, Dental examination Z01.20 [facility] [address] [place] [id number] November, Dental examination Z01.20 [facility] [address] [id number] [place] [address] November, Dental caries on smooth surface penetrating into pulp K02.63 [facility] LARISSA [address] [id number] [place] [address] November, [facility] [address] [id number], [place] [address] November, Tear of medial meniscus of left knee, current, unspecified tear type, initial encounter S83.242A and Chondromalacia, left knee M94.262 [facility] [place] [address] [id number] [place] [address] Oct, [facility] [address] [id number] [address] Oct, Dental examination Z01.20 [facility] [place] [address] [id number] [place] [address] Oct, Multiple sclerosis G35 and Cervical neck pain with evidence of disc disease M50.90 [facility] [address] [facility] [id number] [place] [address] Oct, [facility] DENNYMACEDO [address] [id number] [place] [address] Oct, [facility] [place] [address] [id number] [place] [address] Oct, History of urinary retention Z87.898 ; BMI 50.0-59.9, adult Z68.43 ; CVA tenderness M54.9 and Left anterior knee pain M25.562 [facility] LARISSA [address] [id number] [place] [address] Sep, [facility] LARISSA [address] [id number] [place] [address] Sep, [facility] [place] [address] [id number] [place] [address] Sep, Essential hypertension I10 ; Urinary retention R33.9 ; BMI 50.0-59.9, adult Z68.43 ; Cervical neck pain with evidence of disc disease M50.90 ; Restless leg syndrome G25.81 ; Multiple sclerosis G35 and Long-term current use of high risk medication other than anticoagulant Z79.899 IMMUNIZATIONS No Known Immunizations SOCIAL HISTORY Never Assessed REASON FOR VISIT PLAN OF CARE VITAL SIGNS MEDICATIONS Medication Instructions Dosage Frequency Start Date End Date Duration Status Cyclobenzaprine HCl 10 MG Orally Three times a day 1 tablet as needed 8h Sep, Active Gabapentin 300 MG Orally 3 times a day 1 capsule before bedtime 8h Sep, 30 day(s) Active Amitriptyline HCl 25 MG Orally Once a day 1 tablet 24h Sep, 30 day(s) Active RESULTS No Results PROCEDURES No Known procedures [...]
--- OUTSIDE RECORDS SUMMARY | 2018-12-26 14:47 | XMS REPORT ---
Author Author FLORENTIN MCKEON [facility] LARISSA Address [address] [place] [address] Care Team Providers Care Cytopathologist Name Role Phone FLORENTIN MCKEON Unavailable PROBLEMS Type Condition ICD9-CM Code XTR93-GI Code Onset Dates Condition Status SNOMED Code Problem Multiple sclerosis G35 Active 90721326 Problem Restless leg syndrome G25.81 Active 71454098 Problem Essential hypertension I10 Active 03811548 Problem Cervical neck pain with evidence of disc disease M50.90 Active 218385678 ALLERGIES No Information ENCOUNTERS Encounter Location Date Diagnosis [facility] [address] [id number] [phone] Dec, Dental examination Z01.20 [facility] [id number] [place] [id number] November, Dental examination Z01.20 [facility] [id number] [place] [address] November, Dental caries on smooth surface penetrating into pulp K02.63 [facility] [place] [address] [id number] [place] [address] November, [facility] [address] [id number], [place] [address] November, Tear of medial meniscus of left knee, current, unspecified tear type, initial encounter S83.242A and Chondromalacia, left knee M94.262 [facility] [place] [address] [id number] [place] [address] Oct, [facility] [address] [id number], [place] [address] Oct, Dental examination Z01.20 [facility] [place] [address] [id number] [place] [address] Oct, Multiple sclerosis G35 and Cervical neck pain with evidence of disc disease M50.90 [facility] [address] [facility] [id number] [place] [address] Oct, [facility] LARISSA [address] [id number] [place] [address] Oct, [facility] [place] [address] [id number] [place] [address] Oct, History of urinary retention Z87.898 ; BMI 50.0-59.9, adult Z68.43 ; CVA tenderness M54.9 and Left anterior knee pain M25.562 [facility] [place] Farideh [address] [id number] [place] [address] Sep, [facility] [place] [address] [id number] [place] [address] Sep, [facility] [address] [id number] [place] [address] Sep, Essential hypertension I10 ; Urinary retention R33.9 ; BMI 50.0-59.9, adult Z68.43 ; Cervical neck pain with evidence of disc disease M50.90 ; Restless leg syndrome G25.81 ; Multiple sclerosis G35 and Long-term current use of high risk medication other than anticoagulant Z79.899 IMMUNIZATIONS No Known Immunizations SOCIAL HISTORY Never Assessed REASON FOR VISIT requesting return call PLAN OF CARE VITAL SIGNS [...]
--- OUTSIDE RECORDS SUMMARY | 2018-12-26 14:47 | XMS REPORT ---
Author Author FLORENTIN MCKEON [facility] LARISSA Address [address] [place] [address] Care Team Providers Care Occupational Therapy Assist Name Role Phone FLORENTIN MCKEON Unavailable PROBLEMS Type Condition ICD9-CM Code YYQ55-VK Code Onset Dates Condition Status SNOMED Code Problem Multiple sclerosis G35 Active 86699589 Problem Restless leg syndrome G25.81 Active 63295537 Problem Essential hypertension I10 Active 42894843 Problem Cervical neck pain with evidence of disc disease M50.90 Active 122429221 ALLERGIES No Information ENCOUNTERS Encounter Location Date Diagnosis [facility] [address] [id number] [phone] Dec, Dental examination Z01.20 [facility] [id number] [place] [id number] November, Dental examination Z01.20 [facility] [address] [id number] [place] [address] November, Dental caries on smooth surface penetrating into pulp K02.63 [facility] [place] [address] [id number] [place] [address] November, [facility] [address] [id number] [address] November, Tear of medial meniscus of left knee, current, unspecified tear type, initial encounter S83.242A and Chondromalacia, left knee M94.262 [facility] [place] [address] [id number] [place] [address] Oct, [facility] [address] [id number] [address] Oct, Dental examination Z01.20 [facility] [place] [address] [id number] [place] [address] Oct, Multiple sclerosis G35 and Cervical neck pain with evidence of disc disease M50.90 [facility] [address] [facility] [id number] [place] [address] Oct, [facility] LARISSA [address] [id number] [place] [address] Oct, [facility] [place] [address] [id number] [place] [address] Oct, History of urinary retention Z87.898 ; BMI 50.0-59.9, adult Z68.43 ; CVA tenderness M54.9 and Left anterior knee pain M25.562 [facility] [place] Far[address] [id number] [place] [address] Sep, [facility] [place] [address] [id number] [place] [address] Sep, [facility] [address] [id number] [place] [address] Sep, Essential hypertension I10 ; Urinary retention R33.9 ; BMI 50.0-59.9, adult Z68.43 ; Cervical neck pain with evidence of disc disease M50.90 ; Restless leg syndrome G25.81 ; Multiple sclerosis G35 and Long-term current use of high risk medication other than anticoagulant Z79.899 IMMUNIZATIONS No Known Immunizations SOCIAL HISTORY Never Assessed REASON FOR VISIT Requesting neurology referral PLAN OF CARE VITAL SIGNS MEDICATIONS Unknown [...]
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
--- OUTSIDE RECORDS SUMMARY | 2018-12-26 14:47 | XMS REPORT ---
Author Author FLORENTIN MCKEON [facility] LARISSA Address [address] [place] [address] Care Team Providers Care Java Spring Developer Name Role Phone FLORENTIN MCKEON Unavailable PROBLEMS Type Condition ICD9-CM Code WVO36-KT Code Onset Dates Condition Status SNOMED Code Problem Multiple sclerosis G35 Active 32211546 Problem Restless leg syndrome G25.81 Active 77904565 Problem Essential hypertension I10 Active 45288283 Problem Cervical neck pain with evidence of disc disease M50.90 Active 417286198 ALLERGIES No Information ENCOUNTERS Encounter Location Date Diagnosis [facility] [address] [id number], [place] [id number] Dec, Dental examination Z01.20 [facility] [address] [place] [phone] November, Dental examination Z01.20 [facility] [id number] [place] [address] November, Dental caries on smooth surface penetrating into pulp K02.63 [facility] [place] [address] [id number] [place] [address] November, [facility] [address] [id number] [address] November, Tear of medial meniscus of left knee, current, unspecified tear type, initial encounter S83.242A and Chondromalacia, left knee M94.262 [facility] [place] [address] [id number] [place] [address] Oct, [facility] [address] [id number], [place] [address] Oct, Dental examination Z01.20 [facility] [place] [address] [id number] [place] [address] Oct, Multiple sclerosis G35 and Cervical neck pain with evidence of disc disease M50.90 [facility] [address] [facility] [id number] [place] [address] Oct, [facility] DENNYMACEDO [address] [id number] [place] [address] Oct, [facility] MACEDO [address] [id number] [place] [address] Oct, History of urinary retention Z87.898 ; BMI 50.0-59.9, adult Z68.43 ; CVA tenderness M54.9 and Left anterior knee pain M25.562 [facility] LARISSA Gong [address] [id number] [place] [address] Sep, [facility] MACEDO [address] [id number] [place] [address] Sep, [facility] [address] [id number] [place] [address] Sep, Essential hypertension I10 ; Urinary retention [...] Frequency Start Date End Date Duration Status Amoxicillin 500 MG Orally every 12 hrs 1 capsule 12h 10 day(s) Active RESULTS No Results PROCEDURES No [...]
--- OUTSIDE RECORDS SUMMARY | 2018-12-26 14:47 | XMS REPORT ---
Author Author Enio Quintanilla [facility] Address [address] [place], [place] [address] Care Team Providers Care Gm Video Name Role Phone Enio Quintanilla PCP Allergies and Adverse Reactions Name Reaction Notes oxycodone paranoid SULFA (SULFONAMIDE ANTIBIOTICS) tamsulosin pass out can only do brand-can't do generic Plan of Treatment Planned Activity Comments Planned Date Planned Time Plan/Goal MRI CERVICAL SPINE W/CONTRAST 09/14/2017 12:00 AM Medications Active Name Start Date Estimated Completion Date SIG Comments baclofen 10 mg oral tablet take 1 tablet (10 mg) by oral route 3 times per day fenofibrate oral 134mg losartan oral ranitidine HCl oral Tecfidera 240 mg oral capsule,delayed release(DR/EC) take 1 capsule (240 mg) by oral route 2 times per day pramipexole 0.5 mg oral tablet take 2 tablets by oral route daily cyclobenzaprine 10 mg oral tablet take 1 tablet (10 mg) by oral route 3 times per day hydrocodone-acetaminophen 7.5-325 mg oral tablet take 1 tablet by oral route every 6 hours as needed for pain hydromorphone 4 mg oral tablet take 1 tablet (4 mg) by oral route every 6 hours as needed hydromorphone 8 mg oral tablet take 1 tablet (8 mg) by oral route every 6 hours as needed Flomax 0.4 mg oral capsule,extended release 24hr 09/14/2017 take 1 capsule by oral route daily for 30 days Name Start Date Expiration Date SIG Comments Tamiflu 75 mg oral capsule 07/22/2017 take 1 capsule (75 mg) by oral route 2 times per day for 5 days Discontinued Name Start Date Discontinued Date SIG Comments Zofran (as hydrochloride) 4 mg oral tablet 07/22/2017 09/14/2017 Take 1 tab po q 8 hrs PRN, Problem List Not available. Vital Signs Date Time BP-Sys(mm[Hg] BP-Natasha(mm[Hg]) HR(bpm) RR(rpm) Temp WT HT HC BMI BSA BMI Percentile O2 Sat(%) 09/14/2017 3:20:00 PM 132 mmHg 80 mmHg 85 bpm 16 rpm 96.7 F 279.5 lbs 63 in 49.51 kg/m2 2.37 m2 99 % 08/21/2017 12:01:00 PM 124 mmHg 88 mmHg 73 bpm 18 rpm 97.2 F 279 lbs 63 in 49.4221 kg/m 2.3718 m 100 % 07/22/2017 5:16:00 PM 140 mmHg 86 mmHg 81 bpm 16 rpm 98.9 F 279 lbs 63 in 49.42 kg/m2 2.37 m2 96 % Social History Name Description Comments Tobacco Never smoker Alcohol Never lives alone History of Procedures Date Ordered Description Order Status 07/22/2017 6:07 PM URINALYSIS AUTO W/O SCOPE Reviewed 07/22/2017 12:00 AM URNLS DIP STICK/TABLET REAGENT AUTO MICROSCOPY Reviewed Results Summary Date and Description Results 07/22/2017 6:07 PM Clarity Ur CLEAR Color Ur DK.YELLOW Glucose Ur-sCnc NEGATIVE Bilirub Ur Ql Strip SMALL Ketones Ur Ql Strip NEGATIVE Sp Gr Ur Qn >=1.030 Hgb Ur Ql Strip NEGATIVE pH Ur-LsCnc 5.0 Prot Ur Ql Strip 30MG Urobilinogen Ur-mCnc 0.2 E.U Nitrite Ur Ql Strip NEGATIVE WBC Est Ur Ql Strip NEGATIVE 07/22/2017 6:25 PM COLOR YELLOW APPEARANCE CLEAR SPEC GRAV >=1.030 pH 5.5 PROTEIN TRACE GLUCOSE NEGATIVE mg/dLKETONE NEGATIVE BILIRUBIN SMALL BLOOD NEGATIVE NITRITE NEGATIVE LEUK SCREEN NEGATIVE WBC/HPF 0-5 RBC/HPF RARE CASTS/LPF 1+ HYALINE /LPFCRYSTALS NEGATIVE MUCOUS THRDS 3+++ BACTERIA NEGATIVE EPITH CELLS FEW SQUAMOUS /HPFTRICHOMONAS NEGATIVE YEAST NEGATIVE CULT ORDERED YES History Of Immunizations Not available. History of Past Illness Name Date of Onset Comments Multiple Sclerosis Asthma Spinal stenosis Disc herniation Influenza Jul 22 2017 5:23PM Frequency of urination Jul 22 2017 5:23PM Abnormal urine finding Jul 22 2017 5:23PM Cervicalgia Sep 14 2017 3:22PM Urinary retention Sep 14 2017 3:22PM Payers Insurance Name Company Name Plan Name Plan Number Policy Number Policy Group Number Start Date [employer] [id number] N/A History of Encounters Visit Date Visit Type Provider 09/14/2017 Office visit Enio Quintanilla MD 08/21/2017 Office visit Gloria Workman PREVENTION SPECIALIST 07/22/2017 Office visit Gloria Workman PREVENTION SPECIALIST
--- OUTSIDE RECORDS SUMMARY | 2018-12-26 14:48 | XMS REPORT ---
Author Gloria Perez [facility] Address [address] [place], [place] [id number] Care Team Providers Care Specimen Boss Name Role Phone Gloria Workman PCP Allergies and Adverse Reactions Name Reaction Notes Oxycodone paranoid SULFA (SULFONAMIDE ANTIBIOTICS) tamsulosin pass out can only do brand-can't do generic Plan of Treatment Not available. Medications Active Name Start Date Estimated Completion Date SIG Comments baclofen 10 mg oral tablet take 1 tablet (10 mg) by oral route 3 times per day fenofibrate oral 134mg Flomax 0.4 mg oral capsule,extended release 24hr losartan oral ranitidine HCl oral Zofran (as hydrochloride) 4 mg oral tablet 07/22/2017 Take 1 tab po q 8 hrs PRN, Tecfidera 240 mg oral capsule,delayed release(DR/EC) take 1 capsule (240 mg) by oral route 2 times per day Name Start Date Expiration Date SIG Comments Tamiflu 75 mg oral capsule 07/22/2017 take 1 capsule (75 mg) by oral route 2 times per day for 5 days Problem List Not available. Vital Signs Date Time BP-Sys(mm[Hg] BP-Natasha(mm[Hg]) HR(bpm) RR(rpm) Temp WT HT HC BMI BSA BMI Percentile O2 Sat(%) 08/21/2017 12:01:00 PM 124 mmHg 88 mmHg 73 bpm 18 rpm 97.2 F 279 lbs 63 in 49.42 kg/m2 2.37 m2 100 % 07/22/2017 5:16:00 PM 140 mmHg 86 mmHg 81 bpm 16 rpm 98.9 F 279 lbs 63 in 49.4221 kg/m 2.3718 m 96 % Social History Name Description Comments [...] Abnormal urine finding Jul 22 2017 5:23PM Payers Insurance Name Company Name Plan Name Plan Number Policy Number Policy Group Number Start Date [employer] CarePlus [id number] N/A History of Encounters Visit Date Visit Type Provider 08/21/2017 Office visit Gloria Workman APRN 07/22/2017 Office visit Gloria Workman DUMPING MACHINE OPERATOR
--- OUTSIDE RECORDS SUMMARY | 2018-12-26 14:48 | XMS REPORT ---
Author Author Enio Quintanilla [facility] Address [address] [place], [place] [id number] Care Team Providers Care Salt Maker Name Role Phone Enio Quintanilla PCP Allergies [...] Policy Group Number Start Date [employer]Plus [id number] N/A History of Encounters Visit Date Visit Type Provider 09/14/2017 Office visit Enio Quintanilla MD 08/21/2017 Office visit Gloria Workman BUSHWALKING GUIDE 07/22/2017 Office visit Gloria Workman BUSHWALKING GUIDE
--- OUTSIDE RECORDS SUMMARY | 2018-12-26 14:48 | XMS REPORT | Continuity of Care Document ---
Author Organization Unknown Address Unknown Allergies There is no data. Medications There is no data. Problems There is no data. Procedures There is no data. Results Test Result Range CULTURE, URINE - 10/19/17 10:00 CULTURE, URINE, ROUTINE SEE NOTE NRG CULTURE, URINE - 03/04/18 13:46 CULTURE, URINE, ROUTINE SEE NOTE NRG LIPID PANEL - 10/06/18 08:34 CHOLESTEROL, TOTAL 167 mg/dL <200 HDL CHOLESTEROL 72 mg/dL >50 TRIGLYCERIDES 102 mg/dL <150 LDL-CHOLESTEROL 76 mg/dL (calc) NRG CHOL/HDLC RATIO 2.3 (calc) <5.0 NON HDL CHOLESTEROL 95 mg/dL (calc) <130 CMP - 10/06/18 08:34 GLUCOSE 106 mg/dL 65-99 UREA NITROGEN (BUN) 20 mg/dL 7-25 CREATININE 0.71 mg/dL 0.50-1.05 eGFR NON-AFR. IRAQI 97 mL/min/1.73m2 > OR=60 eGFR 113 mL/min/1.73m2 > OR=60 BUN/CREATININE RATIO NOT APPLICABLE (calc) 6-22 SODIUM 140 mmol/L 135-146 POTASSIUM 4.0 mmol/L 3.5-5.3 CHLORIDE 101 mmol/L 98-110 CARBON DIOXIDE 27 mmol/L 20-32 CALCIUM 9.9 mg/dL 8.6-10.4 PROTEIN, TOTAL 7.0 g/dL 6.1-8.1 ALBUMIN 4.5 g/dL 3.6-5.1 GLOBULIN 2.5 g/dL (calc) 1.9-3.7 ALBUMIN/GLOBULIN RATIO 1.8 (calc) 1.0-2.5 BILIRUBIN, TOTAL 0.5 mg/dL 0.2-1.2 ALKALINE PHOSPHATASE 55 U/L 33-130 AST 19 U/L 10-35 ALT 18 U/L 6-29 CBC - 10/06/18 08:34 WHITE BLOOD CELL COUNT 7.9 Thousand/uL 3.8-10.8 RED BLOOD CELL COUNT 4.62 Million/uL 3.80-5.10 HEMOGLOBIN 14.1 g/dL 11.7-15.5 HEMATOCRIT 41.9 % 35.0-45.0 MCV 90.7 fL 80.0-100.0 MCH 30.5 pg 27.0-33.0 MCHC 33.7 g/dL 32.0-36.0 RDW 12.8 % 11.0-15.0 PLATELET COUNT 347 Thousand/uL 140-400 MPV 10.6 fL 7.5-12.5 ABSOLUTE NEUTROPHILS 4203 cells/uL 5772-3816 ABSOLUTE LYMPHOCYTES 2781 cells/uL 850-3900 ABSOLUTE MONOCYTES 703 cells/uL 200-950 ABSOLUTE EOSINOPHILS 126 cells/uL 15-500 ABSOLUTE BASOPHILS 87 cells/uL 0-200 NEUTROPHILS 53.2 % NRG LYMPHOCYTES 35.2 % NRG MONOCYTES 8.9 % NRG EOSINOPHILS 1.6 % NRG BASOPHILS 1.1 % NRG TSH - 10/06/18 08:34 TSH 1.74 mIU/L NRG VITAMIN D, 25-H - 10/06/18 08:34 VITAMIN D,25-OH,TOTAL,IA 26 ng/mL 30-100 Encounters ACCT No. Visit Date/Time Discharge Status Pt. Type Provider Facility Loc./Unit Complaint [id number] 10/17/2018 13:30:00 10/17/2018 23:59:59 CLS Outpatient CIRILO MURRAY [facility] [id number] 10/06/2018 08:40:00 Document Registration [id number] 03/04/2018 11:55:00 Document Registration [id number] 10/19/2017 10:00:00 Document Registration [id number] 09/14/2017 15:31:33 09/14/2017 23:59:59 CLS Outpatient Enio Quintanilla [id number] 08/21/2017 12:47:28 08/21/2017 23:59:59 CLS Outpatient Gloria Workman [id number] 07/22/2017 18:25:28 07/22/2017 23:59:59 CLS Outpatient Gloria Workman
[2018-12-26] MEDS ORDERED: ASPIRIN 81 MG CHEW (CHILDREN'S ASA) PO ONE (15:15)
[2018-12-26] MEDS ORDERED: KETOROLAC 30 MG/ML VIAL IVP STA (15:34)
[2018-12-26 15:38] LABS: HEMATOCRIT 43 % (35-52); HEMOGLOBIN 14.4 G/DL (11.5-16.0); MEAN CORPUSCULAR HEMOGLOBIN 30 PG (25-34); MEAN CORPUSCULAR HGB CONC 34 G/DL (32-36); MEAN CORPUSCULAR VOLUME 90 FL (80-99); MEAN PLATELET VOLUME 10.2 FL (7.4-10.4); PLATELET COUNT 265 10^3/uL (130-400); RED CELL DISTRIBUTION WIDTH 12.1 % (10.0-14.5); WHITE BLOOD COUNT 8.4 10^3/uL (4.3-11.0)
[2018-12-26 15:39] LABS: BASOPHILS # (AUTO) 0.1 10^3/uL (0.0-0.1); BASOPHILS % (AUTO) 1 % (0-10); EOSINOPHILS # (AUTO) 0.1 10^3/uL (0.0-0.3); EOSINOPHILS % (AUTO) 1 % (0-10); LYMPHOCYTES # (AUTO) 2.5 X 10^3 (1.0-4.0); LYMPHOCYTES % (AUTO) 29 % (12-44); MONOCYTES # (AUTO) 0.7 X 10^3 (0.0-1.0); MONOCYTES % (AUTO) 8 % (0-12); NEUTROPHILS % (AUTO) 59 % (42-75)
--- NOTE | 2018-12-26 15:46 | Diagnostic Imaging Report ---
INDICATION: Left arm and neck pain. EXAMINATION: Portable chest at 3:18 PM. FINDINGS: The heart size and pulmonary vascularity are normal. The lungs are clear. There are no effusions or pneumothoraces. IMPRESSION: Negative chest. Dictated by: Dictated on workstation # [id number]
[2018-12-26 15:58] LABS: INR 0.9 (0.8-1.4); PROTHROMBIN TIME PATIENT 12.5 SEC (12.2-14.7)
[2018-12-26 16:00] LABS: ALANINE AMINOTRANSFERASE 25 U/L (0-55); ALBUMIN 4.1 GM/DL (3.2-4.5); ALKALINE PHOSPHATASE 73 U/L (40-136); BILIRUBIN,TOTAL 0.2 MG/DL (0.1-1.0); BUN/CREATININE RATIO 24; CALCIUM 9.6 MG/DL (8.5-10.1); CARBON DIOXIDE 24 MMOL/L (21-32); CHLORIDE 100 MMOL/L (98-107); CREATININE SERUM 0.55 MG/DL (0.60-1.30); GFR ESTIMATED > 60; GLUCOSE 104 MG/DL (70-105); MAGNESIUM 1.9 MG/DL (1.8-2.4); POTASSIUM 4.4 MMOL/L (3.6-5.0); SODIUM 138 MMOL/L (135-145); TOTAL PROTEIN 7.3 GM/DL (6.4-8.2)
--- NOTE | 2018-12-26 16:04 | ED Chest Pain ---
General Chief Complaint: Cardiac/General Problems Stated Complaint: LT ARM/NECK/HEAD PAIN; LIGHT-HEADED Source: patient Exam Limitations: no limitations History of Present Illness Date Seen by Provider: Dec 26, 2018 Time Seen by Provider: 15:20 Initial Comments Here with report of left arm and neck pain as well as some intermittent chest pressure over the last 4 days. States she usually gets it in the evening and lasted for several hours. Today he had some left arm and left neck pain that the little different than typical and had some lightheadedness. She did feel short of breath a few days ago but none since. Was previously on medications for blood pressure and edema but stopped taking those abruptly a month ago. Does have MS and the medication she had for that she stopped taking as well on month ago. She did not talk to her doctor about that. She states she stopped taking them because of cost. She called her doctor's office and explain the symptoms try to get an appointment and they wanted her seen in the ER. 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) NTG SL CHRISTMAS TREE CONTRACTOR: No Associated Symptoms: No abdominal pain, No back pain, No nausea/vomiting; shortness of breath; No weakness Allergies and Home Medications Allergies Coded Allergies: Sulfa (Sulfonamide Antibiotics) (Verified Allergy, Unknown, 12/26/18) oxycodone (Verified Allergy, Unknown, 12/26/18) tamsulosin (Verified Allergy, Unknown, 12/26/18) Patient Home Medication List Home Medication List Reviewed: Yes Review of Systems Review of Systems Constitutional: see HPI; No chills, No fever EENTM: No Symptoms Reported Respiratory: See HPI Cardiovascular: See HPI, Lightheadedness; Denies Palpitations Gastrointestinal: No Symptoms Reported Genitourinary: No Symptoms Reported Musculoskeletal: see HPI, joint pain, muscle pain Skin: no symptoms reported Psychiatric/Neurological: No Symptoms Reported All Other Systems Reviewed Negative Unless Noted: Yes Past Juchogs-Immchr-Wputqf Hx Past Med/Social Hx: Reviewed Nursing Past Med/Soc Hx Patient Social History Alcohol Use: Denies Use Recreational Drug Use: No Smoking Status: Never a Smoker Past Medical History Surgeries: Yes Gallbladder, Hysterectomy, Orthopedic (neck.), Tonsillectomy Respiratory: No Cardiac: Yes High Cholesterol, Hypertension Neurological: Yes Multiple Sclerosis Genitourinary: No Gastrointestinal: No Musculoskeletal: Yes Degenerate Disk Disease (multilevel), Chronic Back Pain Endocrine: No HEENT: No Psychosocial: No Family Medical History Reviewed and Corrections made No Pertinent Family Hx Physical Exam Vital Signs Capillary Refill : Height, Weight, BMI Height: '" Weight: lbs. oz. kg; BMI Method: General Appearance: No Apparent Distress, WD/WN, Obese HEENT: PERRL/EOMI, Pharynx Normal Neck: Non Tender, Supple Respiratory: Lungs Clear, Normal Breath Sounds Cardiovascular: Regular Rate, Rhythm, No Murmur Gastrointestinal: Non Tender, Soft Extremity: Normal Range of Motion, Non Tender Neurologic/Psychiatric: Alert, Oriented x3 Skin: Normal Color, Warm/Dry Progress/Results/Core Measures Results/Orders Lab Results Laboratory Tests Test 12/26/18 15:30 Range/Units White Blood Count 8.4 4.3-11.0 10^3/uL Red Blood Count 4.75 4.35-5.85 10^6/uL Hemoglobin 14.4 11.5-16.0 G/DL Hematocrit 43 35-52 % Mean Corpuscular Volume 90 80-99 FL Mean Corpuscular Hemoglobin 30 25-34 PG Mean Corpuscular Hemoglobin Concent 34 32-36 G/DL Red Cell Distribution Width 12.1 10.0-14.5 % Platelet Count 265 130-400 10^3/uL Mean Platelet Volume 10.2 7.4-10.4 FL Neutrophils (%) (Auto) 59 42-75 % Lymphocytes (%) (Auto) 29 12-44 % Monocytes (%) (Auto) 8 0-12 % Eosinophils (%) (Auto) 1 0-10 % Basophils (%) (Auto) 1 0-10 % Neutrophils # (Auto) 5.0 1.8-7.8 X 10^3 Lymphocytes # (Auto) 2.5 1.0-4.0 X 10^3 Monocytes # (Auto) 0.7 0.0-1.0 X 10^3 Eosinophils # (Auto) 0.1 0.0-0.3 10^3/uL Basophils # (Auto) 0.1 0.0-0.1 10^3/uL Prothrombin Time 12.5 12.2-14.7 SEC INR Comment 0.9 0.8-1.4 Activated Partial Thromboplast Time 20 L 24-35 SEC Sodium Level 138 135-145 MMOL/L Potassium Level 4.4 3.6-5.0 MMOL/L Chloride Level 100 98-107 MMOL/L Carbon Dioxide Level 24 21-32 MMOL/L Anion Gap 14 5-14 MMOL/L Blood Urea Nitrogen 13 7-18 MG/DL Creatinine 0.55 L 0.60-1.30 MG/DL Estimat Glomerular Filtration Rate > 60 BUN/Creatinine Ratio 24 Glucose Level 104 70-105 MG/DL Calcium Level 9.6 8.5-10.1 MG/DL Corrected Calcium 9.5 8.5-10.1 MG/DL Magnesium Level 1.9 1.8-2.4 MG/DL Total Bilirubin 0.2 0.1-1.0 MG/DL Aspartate Amino Transf (AST/SGOT) 22 5-34 U/L Alanine Aminotransferase (ALT/SGPT) 25 0-55 U/L Alkaline Phosphatase 73 40-136 U/L Myoglobin < 21.0 10.0-92.0 NG/ML Troponin T 7 <=10 NG/L Total Protein 7.3 6.4-8.2 GM/DL Albumin 4.1 3.2-4.5 GM/DL My Orders Orders - TIARA JOHNSON MD Cbc With Automated Diff (12/26/18 15:09) Magnesium (12/26/18 15:09) Chest 1 View Ap/Pa Only (12/26/18 15:09) Ekg Tracing (12/26/18 15:09) Comprehensive Metabolic Panel (12/26/18 15:09) Myoglobin Serum (12/26/18 15:09) Protime With Inr (12/26/18 15:09) Partial Thromboplastin Time (12/26/18 15:09) O2 (12/26/18 15:09) Monitor-Rhythm Ecg Trace Only (12/26/18 15:09) Lipid Panel (12/27/18 06:00) Aspirin Chewable Tablet (Baby Aspirin Ch (12/26/18 15:15) Ed Iv/Invasive Line Start (12/26/18 15:09) Troponin T (6/10/19 15:09) Ketorolac Injection (Toradol Injection) (12/26/18 15:34) Medications Given in ED Current Medications Medications Dose Ordered Sig/[place] Route Start Time Stop Time Status Last Admin Dose Admin Aspirin 324 mg ONCE ONCE PO 12/26/18 15:15 12/26/18 15:16 DC 12/26/18 16:40 324 MG Progress Progress Note : Progress Note Seen and evaluated. IV, labs, EKG and chest x-ray ordered. ASA 324 mg by mouth ordered. Patient is pain-free right now. Monitor patient. 1700: No acute findings. Overall feeling better. This may be radiculopathy related to the neck. We will go ahead and initiate steroid burst and have her follow-up with her doctor. No indication of cardiac event or concerns. She will follow-up with Dr. Donovan for further evaluation. I will send a copy of the chart to him. Discharged home with return precautions. Patient verbalize understanding instructions and agreement with plan. Initial ECG Impression Date: Dec 26, 2018 Initial ECG Impression Time: 15:20 Initial ECG Rate: 75 Initial ECG Rhythm: Normal Sinus Comment Sinus rhythm with left atrial enlargement. No evidence of ST elevation [place]. No previous available for comparison. Interpreted by me. Diagnostic Imaging Diagonstic Imaging: Xray Plain Films/CT/US/NM/MRI: chest Comments [facility] [place], [place] NAME: JOSSELYN STARKS [facility] REC#: [id number] PT STATUS: REG ER : 1965 PHYSICIAN: TIARA JOHNSON MD ADMIT DATE: 12/26/18/ER FS Draft Date of Exam:12/26/18 CHEST 1 VIEW AP/PA ONLY INDICATION: Left arm and neck pain. EXAMINATION: Portable chest at 3:18 PM. FINDINGS: The heart size and pulmonary vascularity are normal. The lungs are clear. There are no effusions or pneumothoraces. IMPRESSION: Negative chest. Dictated on workstation # [id number] Dict: 12/26/18 1542 Trans: 12/26/18 1546 [id number] Interpreted by: TIARA ZAVALA MD Electronically signed by: Departure Impression Primary Impression: Left axillary pain Additional Impression: Radiculopathy Qualified Codes: M54.12 - Radiculopathy, cervical region Disposition: 01 HOME, SELF-CARE Condition: Improved Departure-Patient Inst. Decision time for Depature: 17:04 Referrals: CIRILO DONOVAN MD (PCP/Family) Primary Care Physician Patient Instructions: Muscle Strain (DC), Radiculopathy Add. Discharge Instructions: All discharge instructions reviewed with patient and/or family. Voiced understanding. Take medications as directed. Follow-up with your Dr. in one to 3 days for recheck and further evaluation. Return for worse pain, weakness, breathing problems, chest pain, nausea, vomiting or other concerns as needed. You may take ibuprofen 800 mg every 8 hours as needed for pain. You may also take Tylenol/acetaminophen 1000 mg every 8 hours as needed for pain. Scripts Prednisone (Prednisone) 20 Mg Tab 40 MG PO DAILY, #10 TAB 0 Refills Prov: TIARA JOHNSON MD 12/26/18 Copy Copies To 1: CIRILO DONOVAN MD, TIMOTHY D MD Dec 26, 2018 16:04
[2018-12-26] MEDS ORDERED: PRD20T PO (17:07)
[2018-12-26 17:19] VITALS: BP 153/96
== END 2018-12-26 17:19 | disposition home or self-care (01) ==
LOC: EDUNIT# 14:41 → ER FS 14:42
DX: M54.12 Radiculopathy, cervical region (principal); M79.622 Pain in left upper arm; R07.89 Other chest pain; E78.00 Pure hypercholesterolemia, unspecified; I10 Essential (primary) hypertension; G35 Multiple sclerosis; Z88.2 Allergy status to sulfonamides; Z88.5 Allergy status to narcotic agent; Z88.8 Allergy status to other drugs, medicaments and biological substances; Z90.710 Acquired absence of both cervix and uterus; Z90.89 Acquired absence of other organs
CPT/HCPCS: 36415; 71045; 80053; 83735; 83874; 84484; 85025; 85610; 85730; 93005; 93041; 96374